=== PATIENT | female | born 1955 | race Caucasian/White ===

== ENCOUNTER 2017-05-08 10:40 | Emergency (ER) | payer BC ==
--- NOTE | 2017-05-08 11:09 | ER Document Report ---
ED Medical Screen (RME) - General Chief Complaint: Abdominal Swelling Stated Complaint: SHORTNESS OF BREATHING Time Seen by Provider: 05/08/17 11:06 Notes: Patient reports several days of shortness of breath. She states he also feels like her abdomen is very full and there is a lot of pressure. She states there is no abdominal pain however. She states she can eat normally and has no problems with bowel movements or urination. No vomiting. She states that she feels short of breath and it is worse with exertion. She is also had a new dry cough. She states she has a history of congestive heart failure in the past but has been on "water pills". She states she has had no further problems with heart failure and denies any previous history of coronary artery disease. She also smokes daily but has never been diagnosed with COPD. She denies any runny nose or fevers. Patient states she is on multiple medications for high blood pressure and has been taking them regularly. TRAVEL OUTSIDE OF THE [place] IN LAST 30 DAYS: No - Related Data Allergies/Adverse Reactions: No Known Allergies Allergy (Unverified 05/08/17 11:05) Past Medical History Renal/ Medical History: Denies: Hx Peritoneal Dialysis Physical Exam - Vital signs Vitals: Temp Pulse Resp BP Pulse Ox 98.3 F 75 16 197/81 H 94 05/08/17 10:52 05/08/17 10:52 05/08/17 10:52 05/08/17 10:52 05/08/17 10:52 Course - Vital Signs Vital signs: Temp Pulse Resp BP Pulse Ox 98.3 F 75 16 197/81 H 94 05/08/17 10:52 05/08/17 10:52 05/08/17 10:52 05/08/17 10:52 05/08/17 10:52
[2017-05-08 11:45] LABS: ABSOLUTE BASOPHILS # (AUTO) 0.1 10^3/uL (0.0-0.2); ABSOLUTE EOSINOPHILS # (AUTO) 0.2 10^3/uL (0.0-0.6); ABSOLUTE LYMPHOCYTES (AUTO) 1.6 10^3/uL (0.5-4.7); ABSOLUTE MONOCYTES (AUTO) 0.6 10^3/uL (0.1-1.4); ABSOLUTE NEUT (AUTO) 3.7 10^3/uL (1.7-8.2); BASOPHILS % (AUTO) 1.2 % (0-2); HEMOGLOBIN 13.8 g/dL (12.0-15.5); HGB HCT DIFFERENCE 0.4; LYMPHOCYTES % (AUTO) 25.5 % (13-45); MEAN CORPUSCULAR HEMOGLOBIN 29.4 pg (27.0-33.4); MEAN CORPUSCULAR HGB CONC 33.7 g/dL (32.0-36.0); MEAN CORPUSCULAR VOLUME 87 fl (80-97); MONOCYTES % (AUTO) 9.1 % (3-13); RED BLOOD COUNT 4.71 10^6/uL (3.72-5.28); RED CELL DISTRIBUTION WIDTH 14.2 % (11.5-14.0); SEGMENTED NEUTROPHILS % (AUTO) 60.2 % (42-78); WHITE BLOOD COUNT 6.2 10^3/uL (4.0-10.5)
--- NOTE | 2017-05-08 11:55 | RADIOLOGY REPORT (SQ) ---
EXAM DESCRIPTION: CHEST PA/LAT COMPLETED DATE/TIME: 05/08/2017 11:44 am REASON FOR STUDY: cough/sob COMPARISON: None. EXAM PARAMETERS: NUMBER OF VIEWS: two views TECHNIQUE: Digital Frontal and Lateral radiographic views of the chest acquired. RADIATION DOSE: NA LIMITATIONS: none FINDINGS: LUNGS AND PLEURA: No opacities, masses or pneumothorax. No pleural effusion. MEDIASTINUM AND HILAR STRUCTURES: No masses or contour abnormalities. HEART AND VASCULAR STRUCTURES: Heart normal size. No evidence for failure. BONES: There is an old fracture of the proximal right humerus. HARDWARE: None in the chest. OTHER: No other significant finding. IMPRESSION: Old right humeral fracture. There is no acute cardiopulmonary disease. TECHNICAL DOCUMENTATION: JOB ID: [id number] [employer]- All Rights Reserved
[2017-05-08 12:00] LABS: ALANINE AMINOTRANSFERASE 39 U/L (9-52); ALKALINE PHOSPHATASE 98 U/L (38-126); ANION GAP 12 (5-19); ASPARTATE AMINO TRANSFERASE 24 U/L (14-36); BILIRUBIN,DIRECT 0.4 mg/dL (0.0-0.4); BILIRUBIN,TOTAL 0.5 mg/dL (0.2-1.3); BLOOD UREA NITROGEN 10 mg/dL (7-20); CALCIUM 9.4 mg/dL (8.4-10.2); CARBON DIOXIDE 26 mmol/L (22-30); CHLORIDE 104 mmol/L (98-107); CREATININE RESULT 0.65 mg/dL (0.52-1.25); GLUCOSE 104 mg/dL (75-110); POTASSIUM 4.4 mmol/L (3.6-5.0); SODIUM 141.8 mmol/L (137-145); TOTAL PROTEIN 6.5 g/dL (6.3-8.2)
[2017-05-08 12:14] LABS: TROPONIN I < 0.012 ng/mL
--- NOTE | 2017-05-08 12:53 | EKG REPORT ---
SEVERITY:- ABNORMAL ECG - SINUS RHYTHM PROBABLE LVH WITH SECONDARY REPOL ABNRM : Confirmed by: Ludwig Qureshi MD 08-May-2017 12:53:37
--- NOTE | 2017-05-08 12:54 | ER Document Report ---
ED General - General Chief Complaint: Abdominal Swelling Stated Complaint: SHORTNESS OF BREATHING Time Seen by Provider: 05/08/17 11:06 Mode of Arrival: Ambulatory Information source: Patient Notes: 61-year-old female presents with complaints of swelling in abdomen shortness of breath. Patient notes symptoms have been ongoing now for the past few days denies any fevers or chills denies any nausea vomiting or diarrhea patient notes minimal amount of swelling in the lower extremities when standing straight TRAVEL OUTSIDE OF THE [place] IN LAST 30 DAYS: No - HPI Onset: Last week Onset/Duration: Intermittent Quality of pain: No pain Severity: Mild Pain Level: Denies Associated symptoms: None Exacerbated by: Denies Relieved by: Denies Similar symptoms previously: No Recently seen / treated by doctor: No - Related Data Allergies/Adverse Reactions: No Known Allergies Allergy (Unverified 05/08/17 11:05) Home Medications: Current Home Medications Aspirin [Aspirin 325 mg Tablet] 325 mg PO DAILY 05/08/17 [History] Atorvastatin Calcium 20 mg PO QHS 05/08/17 [History] Furosemide 20 mg PO DAILY 05/08/17 [History] Labetalol HCl [Trandate] 200 mg PO BID 05/08/17 [History] Lisinopril 10 mg PO BID 05/08/17 [History] Multivits-Min/Iron/FA/Lutein [Centrum Silver Women Tablet] 1 each PO DAILY 05/08 [History] Niacin (Inositol Niacinate) [Niacin 500 mg Capsule] 1,000 mg PO DAILY 05/08/17 [ History] Sertraline HCl 50 mg PO DAILY 05/08/17 [History] Past Medical History - Social History Smoking Status: Never Smoker Cigarette use (# per day): No Chew tobacco use (# tins/day): No Smoking Education Provided: No Family History: Reviewed & Not Pertinent Patient has suicidal ideation: No Renal/ Medical History: Denies: Hx Peritoneal Dialysis Review of Systems - Review of Systems Notes: REVIEW OF SYSTEMS: CONSTITUTIONAL : Denies fever, chills, or sweats. Denies recent illness. EENT: Denies eye, ear, throat, or mouth pain or symptoms. Denies nasal or sinus congestion or discharge. Denies throat, tongue, or mouth swelling or difficulty swallowing. CARDIOVASCULAR: Denies chest pain. Denies palpitations or racing or irregular heart beat. Denies ankle edema. RESPIRATORY: Denies cough, cold, or chest congestion. Denies shortness of breath, difficulty breathing, or wheezing. GASTROINTESTINAL: Abdominal distention GENITOURINARY: Denies difficulty urinating, painful urination, burning, frequency, blood in urine, or discharge. FEMALE GENITOURINARY: Denies vaginal bleeding, heavy or abnormal periods, irregular periods. Denies vaginal discharge or odor. MUSCULOSKELETAL: Denies back or neck pain or stiffness. Denies joint pain or swelling. SKIN: Denies rash, lesions or sores. HEMATOLOGIC : Denies easy bruising or bleeding. LYMPHATIC: Denies swollen, enlarged glands. NEUROLOGICAL: Denies confusion or altered mental status. Denies passing out or loss of consciousness. Denies dizziness or lightheadedness. Denies headache. Denies weakness or paralysis or loss of use of either side. Denies problems with gait or speech. Denies sensory loss, numbness, or tingling. Denies seizures. PSYCHIATRIC: Denies anxiety or stress. Denies depression, suicidal ideation, or homicidal ideation. ALL OTHER SYSTEMS REVIEWED AND NEGATIVE. PHYSICAL EXAMINATION: GENERAL: Well-appearing, well-nourished and in no acute distress. HEAD: Atraumatic, normocephalic. EYES: Pupils equal round and reactive to light, extraocular movements intact, conjunctiva are normal. ENT: Nares patent, oropharynx clear without exudates. Moist mucous membranes. NECK: Normal range of motion, supple without lymphadenopathy LUNGS: Breath sounds clear to auscultation bilaterally and equal. No wheezes rales or rhonchi. HEART: Regular rate and rhythm without murmurs ABDOMEN: Soft, nontender, nondistended abdomen. No guarding, no rebound. No masses appreciated. Female : deferred Musculoskeletal: Normal range of motion, no pitting or edema. No cyanosis. NEUROLOGICAL: Cranial nerves grossly intact. Normal speech, normal gait. Normal sensory, motor exams PSYCH: Normal mood, normal affect. SKIN: 2 masses on scalp Dictation was performed using [employer] voice recognition software Physical Exam - Vital signs Vitals: Temp Pulse Resp BP Pulse Ox 98.3 F 75 16 197/81 H 94 05/08/17 10:52 05/08/17 10:52 05/08/17 10:52 05/08/17 10:52 05/08/17 10:52 Course - Re-evaluation Re-evalutation: 05/08/17 12:53 Physical examination noted no real abnormality I believe the patient's short of breath with abdominal distention due to weight gain rather than ascites 05/08/17 18:51 CT noted no significant abnormality, patient otherwise has no abnormal vital signs, I believe anxiety may be the cause of some of the shortness of breath however I will have the patient follow-up with primary care physician for this as well as to superficial masses on the scalp which the patient is concerned about which will require to be biopsied by dermatology After performing a Medical Screening Examination, I estimate there is LOW risk for RUPTURED ESOPHAGUS, PNEUMOTHORAX, PULMONARY EMBOLISM, ACUTE CORONARY SYNDROME, OR THORACIC AORTIC DISSECTION, thus I consider the discharge disposition reasonable. I have reevaluated this patient multiple times and no significant life threatening changes are noted. The patient and I have discussed the diagnosis and risks, and we agree with discharging home with close follow-up. We also discussed returning to the Emergency Department immediately if new or worsening symptoms occur. We have discussed the symptoms which are most concerning (e.g., bloody sputum, worsening pain or shortness of breath) that necessitate immediate return. - Vital Signs Vital signs: Temp Pulse Resp BP Pulse Ox 98.3 F 66 16 185/83 H 95 05/08/17 14:11 05/08/17 14:11 05/08/17 10:52 05/08/17 14:11 05/08/17 14:11 - Laboratory Result Diagrams: 05/08/17 11:23 05/08/17 11:23 Laboratory results interpreted by me: 05/08/17 11:23 RDW 14.2 H Discharge - Discharge Clinical Impression: Abdominal swelling, Skin abnormality HTN (hypertension) Qualifiers: Hypertension type: essential hypertension Qualified Code(s): I10 - Essential ( primary) hypertension Condition: Stable Disposition: HOME, SELF-CARE Instructions: Edema, Peripheral ([facility]) Referrals: DOM DUMONT DO [ACTIVE STAFF] - Follow up tomorrow
--- NOTE | 2017-05-08 13:26 | RADIOLOGY REPORT (SQ) ---
EXAM DESCRIPTION: CT ABD/PELVIS NO ORAL OR IV COMPLETED DATE/TIME: 05/08/2017 12:59 pm REASON FOR STUDY: abd distension COMPARISON: None. TECHNIQUE: CT scan of the abdomen and pelvis performed without intravenous or oral contrast. Images reviewed with lung, soft tissue, and bone windows. Reconstructed coronal and sagittal MPR images revi ewed. All images stored on PACS. All CT scanners at this facility use dose modulation, iterative reconstruction, and/or weight based d osing when appropriate to reduce radiation dose to as low as reasonably achievable (ALARA). [facility]: Dose Right [facility]: CareDose [facility]: Dose Right [facility]: Teradose 4D [facility]: Smart simplifyMD RADIATION DOSE: Up-to-date CT equipment and radiation dose reduction techniques were employed. CTDIv ol: 8.4 mGy. DLP: 407 mGy-cm.mGy. LIMITATIONS: None. FINDINGS: LOWER CHEST: No significant findings. No nodules or infiltrates. NON-CONTRASTED LIVER, SPLEEN, ADRENALS: Evaluation limited by lack of IV contrast. No identified sign ificant masses. PANCREAS: No masses. No peripancreatic inflammatory changes. GALLBLADDER: Surgically absent RIGHT KIDNEY AND URETER: No suspicious masses. 1.2 cm benign nodule right upper pole renal cortex ax ial image 15 and coronal image 50, likely an angiomyolipoma. No significant calcifications. No hy dronephrosis or hydroureter. LEFT KIDNEY AND URETER: No suspicious masses. Assessment limited by lack of IV contrast. No signifi cant calcifications. No hydronephrosis or hydroureter. AORTA AND RETROPERITONEUM: No aneurysm. No retroperitoneal masses or adenopathy. BOWEL AND PERITONEAL CAVITY: No obvious masses or inflammatory changes. No free fluid. APPENDIX: Surgically absent PELVIS, BLADDER, AND ABDOMINAL WALL:No abnormal masses. No free fluid. Bladder normal. BONES: No significant findings. OTHER: No other significant finding. IMPRESSION: NO SIGNIFICANT OR ACUTE PROCESS IN THE ABDOMEN OR PELVIS. COMMENT: Quality ID # [id number]: Final reports with documentation of one or more dose reduction techniques (e.g., Automated exposure control, adjustment of the mA and/or kV according to patient size, use of iterative reconstruction technique) TECHNICAL DOCUMENTATION: JOB ID: [id number] [employer]- All Rights Reserved
[2017-05-08 14:19] VITALS: BP 185/83
== END 2017-05-08 14:21 | disposition home or self-care (01) ==
LOC: ER 10:40
DX: L98.9 Disorder of the skin and subcutaneous tissue, unspecified (principal); R19.00 Intra-abdominal and pelvic swelling, mass and lump, unspecified site; I10 Essential (primary) hypertension
CPT/HCPCS: 36415; 71020; 74176; 80053; 83880; 84484; 85025; 93005; 93010; 99285

== ENCOUNTER 2019-11-14 07:55 | Emergency (ER) | payer SELFPAY ==
[2019-11-14 08:50] LABS: ABSOLUTE BASOPHILS # (AUTO) 0.1 10^3/uL (0.0-0.2); ABSOLUTE EOSINOPHILS # (AUTO) 0.4 10^3/uL (0.0-0.6); ABSOLUTE LYMPHOCYTES (AUTO) 1.4 10^3/uL (0.5-4.7); ABSOLUTE MONOCYTES (AUTO) 0.8 10^3/uL (0.1-1.4); ABSOLUTE NEUT (AUTO) 8.6 10^3/uL (1.7-8.2); BASOPHILS % (AUTO) 0.9 % (0-2); EOSINOPHILS % (AUTO) 3.7 % (0-6); HEMATOCRIT 39.4 % (36.0-47.0); HEMOGLOBIN 13.2 g/dL (12.0-15.5); LYMPHOCYTES % (AUTO) 12.5 % (13-45); MEAN CORPUSCULAR HEMOGLOBIN 29.2 pg (27.0-33.4); MEAN CORPUSCULAR HGB CONC 33.6 g/dL (32.0-36.0); MEAN CORPUSCULAR VOLUME 87 fl (80-97); MONOCYTES % (AUTO) 6.6 % (3-13); PLATELET COUNT 243 10^3/uL (150-450); RED BLOOD COUNT 4.52 10^6/uL (3.72-5.28); RED CELL DISTRIBUTION WIDTH 14.9 % (11.5-14.0); SEGMENTED NEUTROPHILS % (AUTO) 76.3 % (42-78); TOTAL CELLS COUNTED % (AUTO) 100 %; WHITE BLOOD COUNT 11.3 10^3/uL (4.0-10.5)
[2019-11-14 09:13] LABS: ALBUMIN 3.4 g/dL (3.5-5.0); ALKALINE PHOSPHATASE 104 U/L (38-126); ANION GAP 7 (5-19); ASPARTATE AMINO TRANSFERASE 47 U/L (14-36); BILIRUBIN,DIRECT 0.2 mg/dL (0.0-0.4); BILIRUBIN,TOTAL 0.5 mg/dL (0.2-1.3); BLOOD UREA NITROGEN 12 mg/dL (7-20); CALCIUM 8.4 mg/dL (8.4-10.2); CARBON DIOXIDE 30 mmol/L (22-30); CHLORIDE 103 mmol/L (98-107); GLUCOSE 146 mg/dL (75-110); POTASSIUM 3.8 mmol/L (3.6-5.0); TOTAL PROTEIN 5.9 g/dL (6.3-8.2)
--- NOTE | 2019-11-14 09:13 | RADIOLOGY REPORT (SQ) ---
EXAM DESCRIPTION: CHEST SINGLE VIEW COMPLETED DATE/TIME: 11/14/2019 8:44 am REASON FOR STUDY: SOB COMPARISON: 05/08/2017 EXAM PARAMETERS: NUMBER OF VIEWS: One view. TECHNIQUE: Single frontal radiographic view of the chest acquired. RADIATION DOSE: NA LIMITATIONS: None. FINDINGS: LUNGS AND PLEURA: No opacities, masses or pneumothorax. No pleural effusion. MEDIASTINUM AND HILAR STRUCTURES: No masses. Contour normal. HEART AND VASCULAR STRUCTURES: Heart normal in size. Aortic atherosclerosis. . BONES: No acute findings. Chronic right humeral fracture. HARDWARE: None in the chest. OTHER: No other significant finding. IMPRESSION: Mild ill-defined right basilar opacity, possibly atelectasis or infection. TECHNICAL DOCUMENTATION: JOB ID: [id number] [employer]- All Rights Reserved Reading location - IP/workstation name: [email or web address]
[2019-11-14 09:54] LABS: APPEARANCE,URINE CLEAR; BILIRUBIN,URINE NEGATIVE (NEGATIVE); COLOR,URINE YELLOW; GLUCOSE, URINE 50 mg/dL (NEGATIVE); KETONES,URINE NEGATIVE (NEGATIVE); LEUKOCYTE ESTERASE,URINE TRACE (NEGATIVE); NITRITE,URINE NEGATIVE (NEGATIVE); PROTEIN,URINE 30 mg/dL (NEGATIVE); URINE SPECIFIC GRAVITY 1.013; UROBILINOGEN,URINE NEGATIVE mg/dL (<2.0)
[2019-11-14 10:05] VITALS: BP 182/60
--- NOTE | 2019-11-14 10:24 | ER Document Report ---
ED General - General Chief Complaint: Shortness Of Breath Stated Complaint: SHORTNESS OF BREATH Mode of Arrival: Medic Information source: Patient, Emergency Med Personnel, [facility], [facility] Records Notes: 64-year-old female with hypertension, COPD, tobacco use presents with 2 days of shortness of breath, chest tightness. Patient reports recent productive cough which was treated with azithromycin and 5 days of prednisone. She states that she does have significant allergies and does seem to become more short of breath this time a year. Denies any fever, chills, nausea, vomiting, abdominal pain, chest pain. Patient denies recent travel. Patient did receive breathing treatments, Solu-Medrol prior to arrival and does report improvement of symptoms. TRAVEL OUTSIDE OF THE [place] IN LAST 30 DAYS: No - HPI Onset: Yesterday Onset/Duration: Gradual, Persistent Quality of pain: Other - Chest tightness Severity: Mild Associated symptoms: Allergy/hay fever, Productive cough, Shortness of breath. denies: Chest pain, Fever, Headache, Leg swelling, Nausea, Vomiting, Sore throat Exacerbated by: Coughing Relieved by: Denies Similar symptoms previously: Yes Recently seen / treated by doctor: Yes - Related Data Allergies/Adverse Reactions: No Known Allergies Allergy (Unverified 05/08/17 11:05) Past Medical History - General Information source: Patient - Social History Smoking Status: Current Every Day Smoker Cigarette use (# per day): Yes - 15 Chew tobacco use (# tins/day): No Frequency of alcohol use: None Drug Abuse: None Lives with: Family Family History: Reviewed & Not Pertinent Patient has suicidal ideation: No Patient has homicidal ideation: No - Past Medical History Cardiac Medical History: Reports: Hx Congestive Heart Failure, Hx Hypercholesterolemia, Hx Hypertension Renal/ Medical History: Denies: Hx Peritoneal Dialysis Review of Systems - Review of Systems Notes: REVIEW OF SYSTEMS: CONSTITUTIONAL : Denies fever, chills, or sweats. Denies recent illness. Denies weight loss, recent hospitalizations. EENT: Denies visual changes, eye pain. Denies sore throat, oral lesions, difficulty swallowing. CARDIOVASCULAR: Denies chest pain. Denies palpitations. Denies lower extremity edema. RESPIRATORY: + cough. + shortness of breath, wheezing. GASTROINTESTINAL: Denies abdominal pain or distention. Denies nausea, vomiting, or diarrhea. Denies blood in vomitus, stools, or per rectum. Denies black, tarry stools. Denies constipation. GENITOURINARY: Denies difficulty urinating, painful urination, frequency, blood in urine, or vaginal discharge. MUSCULOSKELETAL: Denies back or neck pain or stiffness. Denies joint pain or swelling. SKIN: Denies rash, lesions or sores. HEMATOLOGIC : Denies easy bruising or bleeding. LYMPHATIC: Denies swollen glands. NEUROLOGICAL: Denies confusion or altered mental status. Denies loss of consciousness. Denies dizziness or lightheadedness. Denies headache. Denies weakness or paralysis. Denies problems difficulty with ambulation, slurred speech. Denies sensory loss, numbness, or tingling. Denies seizures. PSYCHIATRIC: Denies anxiety or stress. Denies depression, suicidal ideation, or homicidal ideation. Denies visual or auditory hallucinations. Physical Exam - Vital signs Vitals: Temp Resp BP Pulse Ox 98.2 F 17 185/83 H 100 11/14/19 08:07 11/14/19 08:07 11/14/19 08:07 11/14/19 08:07 - Notes Notes: PHYSICAL EXAMINATION: GENERAL: Well-appearing, well-nourished and in no acute distress. HEAD: Atraumatic, normocephalic. EYES: Pupils equal round and reactive to light, extraocular movements intact, conjunctiva are normal. ENT: Nares patent, oropharynx clear without exudates. Moist mucous membranes. NECK: Normal range of motion, supple without lymphadenopathy LUNGS: Breath sounds clear to auscultation bilaterally and equal. No wheezes rales or rhonchi. HEART: Regular rate and rhythm without murmurs ABDOMEN: Soft, nontender, nondistended abdomen. No guarding, no rebound. No masses appreciated. Female : deferred Musculoskeletal: Normal range of motion, no pitting or edema. No cyanosis. NEUROLOGICAL: Cranial nerves grossly intact. Normal speech, normal gait. Normal sensory, motor exams PSYCH: Normal mood, normal affect. SKIN: Warm, Dry, normal turgor, no rashes or lesions noted. Course - Re-evaluation Re-evalutation: 11/14/19 10:22 Laboratory 11/14/19 11/14/19 11/14/19 08:38 08:38 09:30 WBC 11.3 H RBC 4.52 Hgb 13.2 Hct 39.4 MCV 87 MCH 29.2 MCHC 33.6 RDW 14.9 H Plt Count 243 Lymph % (Auto) 12.5 L Kern % (Auto) 6.6 Eos % (Auto) 3.7 Baso % (Auto) 0.9 Absolute Neuts (auto) 8.6 H Absolute Lymphs (auto) 1.4 Absolute Monos (auto) 0.8 Absolute Eos (auto) 0.4 Absolute Basos (auto) 0.1 Seg Neutrophils % 76.3 Sodium 139.9 Potassium 3.8 Chloride 103 Carbon Dioxide 30 Anion Gap 7 BUN 12 Creatinine 0.48 L Est GFR ( Amer) > 60 Est GFR (MDRD) Non-Af > 60 Glucose 146 H Calcium 8.4 Total Bilirubin 0.5 Direct Bilirubin 0.2 Neonat Total Bilirubin Not Reportable Neonat Direct Bilirubin Not Reportable Neonat Indirect Bili Not Reportable AST 47 H ALT 32 Alkaline Phosphatase 104 Total Protein 5.9 L Albumin 3.4 L Urine Color YELLOW Urine Appearance CLEAR Urine pH 6.0 Ur Specific [place] 1.013 Urine Protein 30 H Urine Glucose (UA) 50 H Urine Ketones NEGATIVE Urine Blood NEGATIVE Urine Nitrite NEGATIVE Urine Bilirubin NEGATIVE Urine Urobilinogen NEGATIVE Ur Leukocyte Esterase TRACE H Urine WBC (Auto) 2 Urine RBC (Auto) 1 U Hyaline Cast (Auto) 1 Squamous Epi Cells Auto 1 Urine Mucus (Auto) OCC Urine Ascorbic Acid NEGATIVE Chest X-Ray 11/14/19 08:27 IMPRESSION: Mild ill-defined right basilar opacity, possibly atelectasis or infection. Temp Pulse Resp BP Pulse Ox 98.2 F 17 182/60 H 98 11/14/19 08:07 11/14/19 10:01 11/14/19 10:01 11/14/19 10:01 64-year-old female presents with 2 days of shortness of breath. Vital signs reviewed and patient is hypertensive but admits to not taking her blood pressure medication yet today. Patient has recently been treated with azithromycin, prednisone and has been taking Coricidin [id number] for her cough. She has been afebrile. On exam today patient has no increased work of breathing, scant wheezing, no accessory muscle use. CBC shows mild leukocytosis, no anemia. CMP shows no significant electrolyte abnormalities. Questionable right basilar opacity on chest x-ray which reads atelectasis versus infection. Without fever, leukocytosis and recent antibiotic treatment we have decided to hold on any additional antibiotics. Patient was discharged home in stable condition with recommendations to quit smoking. Patient was evaluated and treated as appropriate for the patient's presenting symptoms and complaint, with consideration of any critical or life threatening conditions that may be associated with their obtained history and exam as noted above. All results were discussed with patient and... Patient provided the opportunity to ask questions, and express concerns. Patient was educated on tr eatments based on their presumed diagnosis as noted above. At this time we will discharge the patient with return precautions and follow-up recommendations. Verbal discharge instructions given a the bedside. Medication warnings reviewed. Patient is in agreement with this plan and has verbalized understanding of return precautions. After careful consideration I feel that that patient can be safely discharged from the emergency department, they were advised to followup with a primary care physician in 2-3 days. Dictation on this chart was performed using voice recognition software and may result in unintended grammatical, spelling, syntax or errors. - Vital Signs Vital signs: Temp Pulse Resp BP Pulse Ox 98.2 F 17 182/60 H 98 11/14/19 08:07 11/14/19 10:01 11/14/19 10:01 11/14/19 10:01 - Laboratory Result Diagrams: 11/14/19 08:38 11/14/19 08:38 Laboratory results interpreted by me: 11/14/19 11/14/19 11/14/19 08:38 08:38 09:30 WBC 11.3 H RDW 14.9 H Lymph % (Auto) 12.5 L Absolute Neuts (auto) 8.6 H Creatinine 0.48 L Glucose 146 H AST 47 H Total Protein 5.9 L Albumin 3.4 L Urine Protein 30 H Urine Glucose (UA) 50 H Ur Leukocyte Esterase TRACE H Discharge - Discharge Clinical Impression: COPD exacerbation, Tobacco use Hypertension Qualifiers: Hypertension type: unspecified Qualified Code(s): I10 - Essential (primary) hypertension Condition: Good Disposition: HOME, SELF-CARE Instructions: Dyspnea, Nonspecific ([facility]), Chronic Obstructive Lung Disease ([facility]), Upper Respiratory Illness ([facility]) Additional Instructions: Your symptoms are most likely due to a viral infection it should resolve over the next 7-14 days. You should take [id number] Coricidin per bottle instructions to help thin the mucus. For nasal congestion: I would recommend that you get hmco-jpa-mxfksse oxymetazoline also known is afrin. Use only per bottle instructions and be sure to never use this for more than 3 days if you can develop severe rebound congestion. You may also use tylenol or ibuprofen as needed for aches and thorat discomfort. Please be sure to drink plenty of fluids and get rest. Return to the emergency department he began having difficulty breathing, chest pain, persistent vomiting, or any other symptoms that are concerning to you. Follow up with your [id number] hours for further care or return to the ED IMMEDIATELY if symptoms worsen or you have any concerns. If you cannot afford to follow up with your primary care physician a list of low cost clinics have been provided at the end of your discharge papers as well. Most prescribed medications have multiple side effects. The safest thing to do is when filling your prescription speak to your pharmacist regarding possible interactions with your normal home medications and over the counter medications such as Ibuprofen, Tylenol, Benadryl. If you experience any symptoms that cause you discomfort or concern you should discontinue the medication immediately and return to the emergency room or call your primary care physician. Regarding Blood Pressure: Your blood pressure was noted to be greater than 120/80 at least once in the emergency room today. It is recommended that you follow-up with her primary care physician in the next week for repeat blood pressure check. The Centers for Medicare and Medicaid Services has specific recommendations regarding a person's blood pressure. There are several lifestyle modifications that are recommended in order to help lower your blood pressure. These include: Quitting smoking if you smoke. Reducing the amount of sodium in your diet. Getting regular exercise Limiting alcohol to no more than 2 drinks a day for men and one drink a day for women. Eating a healthy diet, including more fruits and vegetables, low fat dairy products, less saturated and total fat. Losing weight if you are overweight. FOLLOW-UP: Call your doctor's office and let them know your blood pressure was elevated and you were advised to get your blood pressure checked in the above time-line. If you are unable to get into your doctor's office in this time period, you can follow-up with a new physician (I have left the numbers below for a few primary care doctors affiliated with this hospital) or return to the ER. PRIMARY CARE PHYSICIANS: Dr. Marily Mueller [address], [place] [phone] Dr Hernandez Address: [address] , [place] [address] Dr Skinner Address: [address] , [place] [address] Forms: Elevated Blood Pressure, Smoking Cessation Education
--- NOTE | 2019-11-14 18:21 | EKG REPORT ---
SEVERITY:- ABNORMAL ECG - SINUS RHYTHM PROBABLE LVH WITH SECONDARY REPOL ABNRM : Confirmed by: Lawson Hernandez 14-Nov-2019 18:20:27
== END 2019-11-14 10:25 | disposition home or self-care (01) ==
LOC: ER 07:55
DX: J44.1 Chronic obstructive pulmonary disease with (acute) exacerbation (principal); I10 Essential (primary) hypertension; R06.02 Shortness of breath; R05 Cough; F17.210 Nicotine dependence, cigarettes, uncomplicated; I50.9 Heart failure, unspecified; I11.0 Hypertensive heart disease with heart failure
CPT/HCPCS: 36415; 71045; 80053; 81001; 85025; 93005; 93010; 99284